=== PATIENT | female | born 1940 | race Caucasian/White ===

== ENCOUNTER 2016-08-23 20:36 | Emergency (ER) | payer MEDICARE ==
[2016-08-23 21:48] LABS: BASOPHILS 0.7 % (0.0-2.0); EOSINOPHILS 4.1 % (0-7); HEMATOCRIT 34.4 % (36.0-48.0); HEMOGLOBIN 10.6 g/dL (12-16); IMMATURE GRANULOCYTES 0.2 % (0-5); LYMPHOCYTES 24.7 % (15-50); MCH 25.5 pg (26.0-34.0); MCHC 30.8 g/dL (31.0-37.0); MCV 82.9 fL (80.0-100.0); MEAN PLATELET VOLUME 9.4 fL (7.4-10.4); MONOCYTES 11.1 % (2-11); NEUTROPHILS 59.2 % (40-80); PLATELET COUNT 197 10x3/uL (130-400); RBC 4.15 10x6/uL (4.00-5.40); RDW 15.4 % (11.5-14.5); WBC 5.8 10x3/uL (4.8-10.8)
[2016-08-23 22:04] LABS: ALBUMIN 3.3 g/dL (3.4-5.0); ANION GAP 9.8 mmol/L (8-16); CALCIUM 8.4 mg/dL (8.5-10.1); CARBON DIOXIDE 31.6 mmol/L (21.0-32.0); CREATININE - SERUM 0.9 mg/dL (0.6-1.3); POTASSIUM - SERUM 3.4 mmol/L (3.5-5.1); PROTEIN - SERUM 7.6 g/dL (6.4-8.2)
[2016-08-23 22:05] LABS: BILIRUBIN - TOTAL 0.08 mg/dL (0.2-1.3)
[2016-08-23 22:20] LABS: APPEARANCE CLEAR (CLEAR); BILIRUBIN NEGATIVE (NEGATIVE); COLOR YELLOW (YELLOW); GLUCOSE NEGATIVE (NEGATIVE); KETONE NEGATIVE (NEGATIVE); LEUKOCYTE ESTERASE 1+ (NEGATIVE); NITRITE NEGATIVE (NEGATIVE); PROTEIN NEGATIVE (NEGATIVE); UROBILINOGEN NORMAL (NORMAL)
[2016-08-23 22:24] LABS: BACTERIA FEW /hpf (NONE SEEN); RED CELLS - URINE OCC /hpf (0-5); WHITE CELLS - URINE 0-5 /hpf (0-5)
== END 2016-08-24 00:21 | disposition home or self-care (01) ==
LOC: D.ER 20:36
PROVIDERS: Emergency Medicine
DX: N28.1 Cyst of kidney, acquired (principal); I10 Essential (primary) hypertension; K58.9 Irritable bowel syndrome, unspecified

== ENCOUNTER 2016-09-08 11:49 | Emergency (ER) | payer MEDICARE | END 2016-09-08 16:22 | disposition home or self-care (01) | LOC: D.ER 11:49 | DX: S00.83XA Contusion of other part of head, initial encounter (principal); W01.0XXA Fall on same level from slipping, tripping and stumbling without subsequent striking against object, initial encounter; Y93.89 Activity, other specified; Y92.410 Unspecified street and highway as the place of occurrence of the external cause; S16.1XXA Strain of muscle, fascia and tendon at neck level, initial encounter; S39.012A Strain of muscle, fascia and tendon of lower back, initial encounter; S29.012A Strain of muscle and tendon of back wall of thorax, initial encounter; I10 Essential (primary) hypertension; K58.9 Irritable bowel syndrome, unspecified ==

== ENCOUNTER → 2017-10-25 08:37 | Outpatient (CLI) | payer MEDICARE ==
[~2017-10-25] VITALS: Ht 165.1 cm; Wt 94.5 kg
--- NOTE | ~2017-10-25 | HEMODYNAMI ---
PATIENT:BERKLEY BARAJAS MEDICAL RECORD: [id number] : 44 [place] 2[place]T# [id number] ADMISSION DATE: 10/25/17 Generatedon:10/25/201712:21 Patient name: BERKLEY BARAJAS Patient #: [id number] SSN: : 1940 Date of study: 10/25/2017 Page: Of Hemodynamic Procedure Report Patient Data Patient Demographics Procedure consent was obtained First Name: BERKLEY Gender: Female Last Name: KARL : 1940 Patient #: [id number] Age: 77 year(s) Race: Unknown Additional ID: [id number] Contact details [address]: [address] [place] [address] State: [place] City: [place] Zip code: [address] Admission Admission Data Admission Date: 10/25/2017 Admission Time: 8:37 Procedure Procedure Types Cath Procedure Peripheral Cath Diagnostic Procedure Miscellaneous Procedure Description Procedure Date Procedure Date: 10/25/2017 Procedure Start Time: 11:30 Procedure Staff Name Function Mandeep Medina RT Scrub Mandeep Medina RT Monitor Hitesh Mckeon MD Performing Physician Dilma Damon RN Nurse Jaja River RN Nurse Procedure Data Cath Procedure Fluoroscopy Diagnostic fluoroscopy Total fluoroscopy Time: 4.3 time: 4.3 min min Diagnostic fluoroscopy Total fluoroscopy dose: 206 dose: 206 mGy mGy Contrast Material Contrast Material Type Amount (ml) Isovue 300 10 Procedure Medications Medication Administration Route Dosage Fentanyl I.V. 50 mcg Versed I.V. 2 mg Ancef (1Gm/50ml NS) I.V.P.B 1 g Fentanyl I.V. 50 mcg Versed I.V. 2 mg Fentanyl I.V. 50 mcg Fentanyl I.V. 50 mcg Hemodynamics Rest Heart Rate: 64 (bpm) Snapshots Pre Cath Intra NCS Post Cath Vital Signs Time Heart Resp SPO2 etCO2 NIBP (mmHg) Rhythm Pain Status Sedation Rate (ipm) (%) (mmHg) Level (bpm) 11:15:29 99 39.5 Measuring NSR 0 (11) , No 10(A) pain 11:16:43 35.6 Time NSR 0 (11) , No 10(A) Exceeded pain 11:21:24 91 35.7 192/87(135) NSR 0 (11) , No 10(A) pain 11:26:04 63 18 100 37.2 197/92(123) NSR 0 (11) , No 10(A) pain 11:30:45 62 10 98 40.2 193/93(123) NSR 0 (11) , No 10(A) pain 11:35:17 62 17 98 42.5 180/85(132) NSR 0 (11) , No 8(A) pain 11:39:48 64 25 98 43.2 169/81(132) NSR 2 (11) , 8(A) Uncomfortable 11:44:18 64 22 97 42.5 172/83(142) NSR 0 (11) , No 8(A) pain 11:48:17 64 34 19.7 No Cuff NSR 0 (11) , No 8(A) pain 11:50:59 66 7 96 24.3 148/81(121) NSR 2 (11) , 8(A) Uncomfortable 11:55:23 68 12 96 0 162/84(139) NSR 0 (11) , No 8(A) pain 12:00:22 69 11 83 37.2 Measuring NSR 0 (11) , No 8(A) pain 12:00:43 68 12 96 32.6 171/84(124) NSR 0 (11) , No 8(A) pain Medications Time Medication Route Dose Verified Delivered Reason Notes Effectiven ess by by 11:31:23 Fentanyl I.V. 50 Hitesh Wilkinson for Dozing mcg Perico Mckeon RN sedation intermittently MD @ 11:43:09 11:31:34 Versed I.V. 2 mg Hitesh Wilkinson for Dozing Perico Mckeon RN sedation intermittently MD @ 11:43:05 11:33:57 Ancef I.V.P.B 1 g Hitesh Wilkinson Per (1Gm/50ml Perico Mckeon RN protocol NS) 11:35:36 Fentanyl I.V. 50 Hitesh Wilkinson for Sedated @ Perico Love RN sedation 11:50:28 11:41:08 Versed I.V. 2 mg Hitesh Wilkinson for Sedated @ Perico Mckeon RN sedation 11:51:29 11:42:58 Fentanyl I.V. 50 Hitesh Wilkinson for Sedated @ Perico Love RN sedation 11:51:32 11:54:33 Fentanyl I.V. 50 Hitesh Wilkinson for Perico Love RN sedation Procedure Log Time Note 11:06:43 Mandeep Medina RT (R) (CV) sent for patient. Start room use. 11:06:51 Time tracking: Regular hours (M-F 7:00 - 5:00) 11:06:55 Plan of Care:Hemodynamics will remain stable., Cardiac rhythm will remain stable., Comfort level will be maintained., Respiratory function will remain adequate., Patient/ family verbilizes understanding of procedure., Procedure tolerated without complication., Recovers from procedure without complications.. 11:07:01 Patient received from Outpatients to IR Alert and oriented. Tansferred to table in Supine position. 11:07:02 Correct patient and procedure confirmed by team. 11:07:04 ECG and BP/O2 sat monitors applied to patient. 11:07:04 Signed procedure consent form obtained from patient. 11:07:09 - 11:07:09 Full Disclosure recording started 11:07:12 H&P Date Dictated: 10/25/2017 H&P Addendum completed by physician on day of procedure. (MUST COMPLETE FOR ALL OUTPATIENTS). 11:07:13 Pre-op teaching completed and patient verbalized understanding. 11:07:13 Pre-procedure instructions explained to patient. 11:07:16 Family in waiting room. 11:07:18 Patient NPO since Midnight. 11:07:22 Use device set IR Diagnostic 11:07:23 Sterile Angiographic Pack opened to sterile field. 11:07:24 Bag Decanter (2002S) opened to sterile field. 11:11:40 Is the patient allergic to Iodine/contrast media? No. 11:11:42 Is patient on blood thinner?No 11:11:43 Patient diabetic? No. 11:11:45 ----Pre-sedation anethsthesia assessment.---- 11:11:45 - 11:11:49 Previous problem with sedation/anesthesia? No ? 11:11:50 Snore? Yes 11:11:51 Sleep apnea? Yes 11:11:52 Deviated septum? No 11:11:53 Opens mouth fully? Yes 11:11:54 Sticks out tongue? Yes 11:11:57 Airway obstruction? No ? 11:12:03 Dentures? Yes in tight 11:12:12 Patient pain scale 0/10 no pain. 11:12:18 IV patent on arrival in right hand with 0.9% NaCl at [facility]. 11:12:19 Sharps counted by scrub and verified by R.N. 11:12:20 Alarms reviewed by R. N. 11:12:25 Left abdomen area was prepped with chlora-prep and draped in sterile fashion 11:13:40 Vital chart was started 11:28:35 Physician arrived 11:28:36 Final Timeout: patient, procedure, and site verified with staff and physician. All members of the team are in agreement. :28:36 --------ALL STOP TIME OUT------ 11::44 Left abdomen site verified by team. 11:28:50 Sedation plan: IV Moderate Sedation Medication:Versed, Fentanyl 11:29:09 Baseline sample Acquired. 11:30:36 Procedure started. 11:30:41 Local anesthetic to Abdominal area with Lidocaine 1% by Hitesh Mckeon MD.INITIAL ACCESS ONLY 11:30:49 BAG, DRAINAGE EMPTY 600ML W/ADILIA (VFZ646) opened to sterile field. 11:30:[address] ST[address] 3-Way Large Bore ([id number]) opened to sterile field. 11:30:50 Micropuncture VSI 4FR kit opened to sterile field. 11:31:23 Fentanyl 50 mcg I.V. was administered by Jaja River RN; for sedation; 11:31:34 Versed 2 mg I.V. was administered by Jaja River RN; for sedation; 11:33:57 Ancef (1Gm/50ml NS) 1 g I.V.P.B was administered by Jaja River RN ; Per protocol; 11:35:36 Fentanyl 50 mcg I.V. was administered by Jaja River RN; for sedation; 11:37:28 Abscession 10 FR drainage catheter ([id number]) opened to sterile field. 11:37:37 SUTURE ETHILON 2-0 BLK MONO FS opened to sterile field. 11:41:08 Versed 2 mg I.V. was administered by Jaja River RN; for sedation; 11:41:50 BRYAN 80cm wire ([id number]) opened to sterile field. 11:42:58 DILATOR, VESSEL 10/20 opened to sterile field. 11:42:58 Fentanyl 50 mcg I.V. was administered by Jaja River RN; for sedation; 11:42:59 DILATOR, VESSEL 8/20 opened to sterile field. 11:43:05 Effectiveness of Versed delivered @ 11:31:34 is: Dozing intermittently 11:43:09 Effectiveness of Fentanyl delivered @ 11:31:23 is: Dozing intermittentl y 11:44:29 Tegaderm 6 x 8 (1628) opened to sterile field. 11:50:28 Effectiveness of Fentanyl delivered @ 11:35:36 is: Sedated 11:51:29 Effectiveness of Versed delivered @ 11:41:08 is: Sedated 11:51:32 Effectiveness of Fentanyl delivered @ 11:42:58 is: Sedated 11:51:[address] Rakan (003047) opened to sterile field. 11:52:27 BENTSON 145cm wire (D63336) opened to sterile field. 11:54:33 Fentanyl 50 mcg I.V. was administered by Jaja River RN; for sedation; 11:55:39 Abscession 10 FR drainage catheter ([id number]) opened to sterile field. 11:55:41 GLIDE CATHETER 5FR ANGLED 65cm (CG507) opened to sterile field. 11:57:46 procedure aborted by pt moved to CT to proceed with drain. 11:58:28 drainage cath cannot be placed under flouro 11:58:42 Procedure ended.(Physican Out) 11:58:44 had to move patient to ct for drain repositoning 11:59:16 Fluoroscopy time 04.30 minutes. 11:59:20 Fluoroscopy dose: 206 mGy 11:59:20 Flurop Dose total: 206 11:59:23 Sharps counted by scrub and verified by R.N. 12:02:46 Post-op/insertion site Left Abdominal area dressed using a 4 x 4 and Tegaderm. 12:03:04 Post Abdominal area:stable 12:03:08 Post procedure instruction explained to patient.Patient verbalizes understanding. 12:03:09 Procedure and supply charges have been captured, reviewed, submitted an d are correct. 12:03:13 Report given to Other. 12:03:16 Patient transfered to Other with Stretcher. 12:03:36 Vital chart was stopped 12:03:40 Full Disclosure recording stopped 12:20:51 Contrast amount:Isovue 300 10ml. Device Usage Item Name Manufacture Quantity Catalog Hospital Part Current Minim al Lot# / Number Charge Number Stock Stock Serial# Code Sterile Cardinal 1 [id number] [id number] 5 Angiographic Health Pack Bag Decanter Microtek 1 2001S 649999 92066 142790 5 () [employer] [facility] [id number] 777290 6985 505155 5 [id number] 3-Way Large Bore (K38464) BAG, DRAINAGE [facility] Medical 1 [id number] 738610 425725 308640 5 [id number] EMPTY 600ML W/ADILIA (RXS166) Micropuncture VSI VASCULAR 1 7266V 734562 855767 5 VSI 4FR kit SOLUTIONS Abscession 10 Angiodynamics 2 [id number] 126820 488632 428234 5 FR drainage catheter ([id number]) SUTURE Ethicon 1 664H 919780 826440 5 ETHILON 2-0 BLK MONO FS BRYAN 80cm [facility] 1 [id number] 013167 762813 5 [id number] wire ([id number]) DILATOR, [employer] 1 Q87761 320896 81473 946223 5 VESSEL 10/20 DILATOR, [facility] 1 [id number] 414522 16661 163022 5 VESSEL 8/20 Tegaderm 6 x 3M 1 1628 023843 239410 5 8 (1628) SHEATH [address]FR [facility] Rakan 1 981499 463016 056535 319755 5 Rakan (821201) BENTSON 145cm [facility] 1 I83864 238780 744733 5 [id number] wire ([id number]) GLIDE Terumo 1 CG507 263212 058687 5 CATHETER 5FR ANGLED 65cm (CG507) Signature Audit Sledge Stage Time Signature Unsigned Intra-Procedure 10/25/2017 Mandeep Catherineield RT 12:03:34 PM Shuffield RT (R) (CV) 10/25/2017 (R) (CV) 12:20:43 PM Intra-Procedure 10/25/2017 Mandeep 12:21:16 PM Shuffield RT (R) (CV) Signatures Monitor : Mandeep Signature : Florinield RT Date : Time : [place] [id number] [place] [address]
[~2017-10-25 08:37] MED LIST: ARICEPT10 MG PO; BUPROPION XL300 MG PO; HCTZ25 MG PO; LUNESTA3 MG PO; PROTONIX40 MG PO; TRAZODONE HCL50 MG PO; VALTREX1000 MG PO; VIIBRYD40 MG PO
[2017-10-25 09:37] LABS: BASOPHILS 1.1 % (0-2); EOSINOPHILS 4.3 % (0-7); HEMATOCRIT 38.7 % (36.0-48.0); HEMOGLOBIN 12.6 g/dL (12-16); LYMPHOCYTES 27.8 % (15-50); MCHC 32.6 g/dL (31.0-37.0); MCV 89.2 fL (80.0-100.0); MEAN PLATELET VOLUME 9.2 fL (7.4-10.4); MONOCYTES 7.2 % (2-11); NEUTROPHILS 59.6 % (40-80); PLATELET COUNT 172 10x3/uL (130-400); RBC 4.34 10x6/uL (4.00-5.40); RDW 13.3 % (11.5-14.5); WBC 4.4 10x3/uL (4.8-10.8)
[2017-10-25 09:43] VITALS: Ht 165.1 cm; Wt 94.5 kg
[2017-10-25 09:46] LABS: PROTIME 12.8 SECONDS (11.6-15.0)
[2017-10-25 09:47] LABS: APTT 27.6 SECONDS (22.8-39.4)
[2017-10-25 09:56] LABS: ANION GAP 11.3 mmol/L (8-16); CALCIUM 8.5 mg/dL (8.5-10.1); CARBON DIOXIDE 29.2 mmol/L (21.0-32.0); CREATININE - SERUM 0.8 mg/dL (0.6-1.3); POTASSIUM - SERUM 3.5 mmol/L (3.5-5.1)
[2017-10-25 17:33] LABS: PROTEIN - BODY FLUID 4.5 G/DL
[2017-10-25 20:09] LABS: MACROPHAGES BF 43 %; NEUT - BF 13 %
== END | disposition home or self-care (01) ==
LOC: D.CT 10-22 08:00 → D.SP 08:37 → D.CT 11:00
PROVIDERS: General Practice
DX: N28.1 Cyst of kidney, acquired (principal); I10 Essential (primary) hypertension; Z01.812 Encounter for preprocedural laboratory examination

== ENCOUNTER → 2018-11-25 10:05 | Outpatient (CLI) | payer MEDICARE ==
[2018-02-14 08:42] VITALS: BMI 29.1
--- NOTE | ~2018-11-25 | ST ---
PATIENT:BERKLEY BARAJAS MEDICAL RECORD: [id number] SEX: F LOCATION:[facility] ORDER #: ADMISSION DATE: 11/25/18 AGE OF PATIENT: 78 REFERRING PHYSICIAN: INTERPRETING PHYSICIAN: BEAU SALVADOR MD DATE OF SERVICE: 11/25/2018 PROCEDURE: Nuclear stress test. INDICATIONS: Angina, coronary artery disease, shortness of breath, hypertension, hyperlipidemia. She was exercised on standard Lexiscan protocol with 31 mCi of sestamibi injected at peak stress, 10 mCi used previously for rest images. FINDINGS: Gated SPECT reveals preserved ejection fraction at 74% with good wall motion and thickening and brightening throughout all segments. SPECT imaging Cardiolite was used as myocardial fusion agent. There is homogeneous uptake throughout all segments at rest and stress with no evidence of inducible ischemia or previous infarction. OVERALL IMPRESSION: 1. This is a normal nuclear stress test with no evidence of inducible ischemia or previous infarction. 2. Gated SPECT reveals a preserved ejection fraction at 74%. In this patient with ongoing symptomatology, the current scan does not suggest the presence of hemodynamically significant coronary artery disease. Evaluate noncardiac etiology of chest pain. TRANSINT:[id number] Voice Confirmation ID: [id number] DOCUMENT ID: [id number] BEAU SALVADOR MD CC: [id number] DICTATION DATE: 11/26/18 1550 AIR CONDITIONING UNIT TESTER: 11/27/18 0941 [facility] CLI 11/25/18 [facility] [address] [place] [address]
[~2018-11-25 10:05] MED LIST changes: +ACETAMINOPHEN500 M1 PO; +MULTI-DAY VITAM1 TAB PO; +PLAVIX75 MG PO
== END | disposition home or self-care (01) ==
LOC: D.HCCARDIO 10:05
PROVIDERS: ATTEND Internal Medicine Interventional Cardiology
DX: I25.10 Atherosclerotic heart disease of native coronary artery without angina pectoris (principal)

== ENCOUNTER → 2018-12-04 13:39 | Outpatient (CLI) | payer MEDICARE | END | disposition home or self-care (01) | LOC: D.CT 13:39 | DX: N28.1 Cyst of kidney, acquired (principal) ==

== ENCOUNTER → 2018-12-17 13:00 | Outpatient (CLI) | payer MEDICARE ==
[2018-02-14 08:42] VITALS: BMI 29.1
== END | disposition home or self-care (01) ==
LOC: D.US 13:00
PROVIDERS: ATTEND Urology
DX: N83.292 Other ovarian cyst, left side (principal)

== ENCOUNTER 2019-07-28 10:17 | Day surgery (SDC) | payer OTHER ==
[~2019-07-28] VITALS: Ht 165.1 cm; Wt 99.5 kg
[2019-07-28 10:48] LABS: BASOPHILS 0.5 % (0-2); EOSINOPHILS 3.3 % (0-7); HEMATOCRIT 37.6 % (36.0-48.0); HEMOGLOBIN 11.6 g/dL (12-16); IMMATURE GRANULOCYTES 0.2 % (0-5); LYMPHOCYTES 20.7 % (15-50); MCH 25.9 pg (26.0-34.0); MCHC 30.9 g/dL (31.0-37.0); MCV 83.9 fL (80.0-100.0); MEAN PLATELET VOLUME 8.4 fL (7.4-10.4); MONOCYTES 7.6 % (2-11); NEUTROPHILS 67.7 % (40-80); RBC 4.48 10x6/uL (4.00-5.40); RDW 16.5 % (11.5-14.5); WBC 5.8 10x3/uL (4.8-10.8)
[2019-07-28 10:49] LABS: PLATELET COUNT 254 10x3/uL (130-400)
[2019-07-28 10:54] LABS: ANION GAP 10.3 mmol/L (8-16); CALCIUM 8.6 mg/dL (8.5-10.1); CARBON DIOXIDE 31.4 mmol/L (21.0-32.0); CREATININE - SERUM 0.8 mg/dL (0.6-1.3); POTASSIUM - SERUM 3.7 mmol/L (3.5-5.1)
[2019-07-28 10:59] LABS: APTT 28.3 SECONDS (22.8-39.4); INR 1.02 (0.85-1.17); PROTIME 13.3 SECONDS (11.6-15.0)
[2019-07-28] MEDS ORDERED: HALCION0.25 MG PO (11:02)
[2019-07-28] MEDS ORDERED: NORVASC5 MG PO (11:03)
[2019-07-28] MEDS ORDERED: PROZAC20 MG PO (11:03)
[2019-07-28 11:09] VITALS: Ht 165.1 cm; Wt 99.5 kg
--- NOTE | 2019-07-28 15:29 | NUR ---
DC INSTRUCTIONS GIVEN TO PT/FAMILY. STATE UNDERSTANDING. DC'D IV CATH FULLY INTACT.
--- NOTE | 2019-07-28 15:43 | NUR ---
PT LEFT UNIT VIA WC AT 1540
--- NOTE | 2019-07-30 14:45 | OP ---
PATIENT NAME: BERKLEY BARAJAS I MEDICAL RECORD: [id number] :44 LOCATION:D.OPS ADMISSION DATE: SURGEON: CHRISTIANO GARZA MD DATE OF OPERATION: 07/28/2019 PREOPERATIVE DIAGNOSES: 1. Intractable nausea. 2. Epigastric abdominal pain. 3. Gastroesophageal reflux. 4. History of Hirschsprung disease. 5. History of colon polyps. 6. Family history of colon cancer. POSTOPERATIVE DIAGNOSES: 1. Large hiatal hernia. 2. Moderate gastritis with linear ulcers, multiple. 3. Diminutive gastric polyps. 4. Cecal polyp. 5. Pancolonic diverticulosis. PROCEDURES: 1. Esophagogastroduodenoscopy with biopsies. 2. Total colonoscopy to cecum. 3. Hot biopsy forceps polypectomy times 1. SURGEON: Christiano Garza MD LABORER PLUMBING: None. BLOOD LOSS: Minimal. ANESTHESIA: IV sedation. COMPLICATIONS: None. The risks, possible complications and alternatives to the procedure were explained to the patient. She elects to proceed. ENDOSCOPIC COURSE: The patient was conveyed to endoscopy suite electively on 07/28/2019. IV sedation was induced by the anesthesia staff. A bite block was inserted. A gastroscope was inserted into the mouth. It was advanced easily into the hypopharynx. The esophagus was easily intubated as were the stomach and duodenum. On withdrawal, retroflexed and angulus views were obtained. Antral biopsies were obtained. I then unretroflexed the scope and removed under direct vision. I then turned the patient 180 degrees and placed her in the Reeves position. A digital rectal examination was performed. A colonoscope was inserted through the anus. It was easily advanced to the cecum. The prep was adequate. A cecal polyp was noted. It was removed in its entirety utilizing the hot biopsy forceps polypectomy technique. I withdrew the colonoscope slowly. The pullback was greater than 18-minute pullback. I dragged the folds. I utilized not only direct imaging, but also narrow band imaging. I irrigated and aspirated extensively. I noted no other OPERATIVE REPORT [id number] BERKLEY BARAJAS I polypoid lesions. No masses. A retroflexed view was obtained in the rectum. I then unretroflexed the scope and removed it under direct vision. I will see the patient in my office in 2-3 weeks. My plan is to start her on Carafate and have her next surveillance colonoscopy in 3 years. TRANSINT:[id number] Voice Confirmation ID: [id number] DOCUMENT ID: [id number] CHRISTIANO GARZA MD at 1445 CC: DAXA ASCENCIO and BAEU SALVADOR [id number] DICTATION DATE: 07/28/19 1450 CONTROLS DESIGNER: 07/28/19 1515 [facility] [place] 07/28/19 [place] [id number] [place] [id number]
--- NOTE | 2019-07-30 14:45 | HP ---
PATIENT: BERKLEY BARAJAS I MEDICAL RECORD: [id number] ACCOUNT: [id number] LOCATION:[facility] : 42 ADMISSION DATE: 07/28/19 PCP: DAXA ASCENCIO MD HISTORY AND PHYSICAL EXAMINATION CHIEF COMPLAINT: Gastroesophageal reflux. HISTORY OF PRESENT ILLNESS: The patient has been having gastroesophageal reflux, also epigastric abdominal pain. There is a family history of colon cancer. Her mother had colon cancer. Also, she has a personal history of colon polyps. The patient has had no dysphagia. No odynophagia. She is here for EGD and colonoscopy. PAST MEDICAL AND SURGICAL HISTORY: Coronary artery disease; hypertension; history of coronary stents times 1; gastroesophageal reflux, which is controlled; a cyst on the kidney; and cholecystectomy. She has undergone a colon resection due to Hirschsprung's disease, also history of hysterectomy. She has sleep apnea, is on CPAP on a p.r.n. basis. SOCIAL HISTORY: Nonsmoker. HOME MEDICINES: Reviewed. ALLERGIES: REGLAN AND LEVAQUIN. PHYSICAL EXAMINATION: GENERAL: The patient does not appear acutely ill. She does not appear chronically ill. VITAL SIGNS: Reviewed. EARS: External ears appear normal. EYES: Extraocular movements are intact. NECK: Trachea is midline. CHEST: No intercostal retractions. PULMONARY: Nonlabored, no stridor. IMPRESSION: 1. Epigastric abdominal pain. 2. Gastroesophageal reflux. 3. Family history of colon cancer. 4. History of Hirschsprung's disease, status post colectomy. 5. History of colon polyps. PLAN: EGD and colonoscopy. TRANSINT:[id number] Voice Confirmation ID: [id number] DOCUMENT ID: [id number] HISTORY AND PHYSICAL [id number] BERKLEY BARAJAS I CHRISTIANO GARZA MD at 1445 CC: DAXA ASCENCIO and BEAU SALVADOR [id number] DICTATION DATE: 07/28/19 1351 LEAD NITRATE PROCESSOR: 07/28/19 1404 [facility] 07/28/19 [facility] [address] [place] [address]
== END 2019-07-28 15:40 | disposition home or self-care (01) ==
LOC: D.OPS 10:17
PROVIDERS: Anesthesiology; ATTEND Surgery
DX: R11.0 Nausea (principal); R10.13 Epigastric pain; K21.9 Gastro-esophageal reflux disease without esophagitis; Z86.010 Personal history of colon polyps; Z80.0 Family history of malignant neoplasm of digestive organs; D12.0 Benign neoplasm of cecum; K31.7 Polyp of stomach and duodenum; K57.90 Diverticulosis of intestine, part unspecified, without perforation or abscess without bleeding

== ENCOUNTER → 2019-12-04 12:32 | Outpatient (CLI) | payer OTHER ==
[2019-07-28 11:09] VITALS: BMI 36.5
[~2019-12-04 12:32] MED LIST changes: +HALCION0.25 MG PO; +NORVASC5 MG PO; +PROZAC20 MG PO
== END | disposition home or self-care (01) ==
LOC: D.US 12:32
PROVIDERS: ATTEND Family Medicine
DX: R19.09 Other intra-abdominal and pelvic swelling, mass and lump (principal); R79.89 Other specified abnormal findings of blood chemistry

== ENCOUNTER 2020-01-11 10:00 | Observation (INO) | payer OTHER ==
[~2020-01-11] VITALS: Ht 165.1 cm; Wt 94.7 kg
[2020-01-11 10:32] LABS: BASOPHILS 0.9 % (0-2); EOSINOPHILS 3.8 % (0-7); HEMOGLOBIN 7.8 g/dL (12-16); IMMATURE GRANULOCYTES 0.2 % (0-5); LYMPHOCYTES 22.1 % (15-50); MCH 21.8 pg (26.0-34.0); MCHC 28.9 g/dL (31.0-37.0); MCV 75.4 fL (80.0-100.0); MEAN PLATELET VOLUME 8.1 fL (7.4-10.4); MONOCYTES 9.1 % (2-11); NEUTROPHILS 63.9 % (40-80); PLATELET COUNT 302 10x3/uL (130-400); RBC 3.58 10x6/uL (4.00-5.40); RDW 17.6 % (11.5-14.5); WBC 5.3 10x3/uL (4.8-10.8)
[2020-01-11 10:45] LABS: CALC OSMOLALITY 278 mosm/kg (275-300); CALCIUM 8.4 mg/dL (8.5-10.1); CHLORIDE - SERUM 104 mmol/L (98-107); GLUCOSE 93 mg/dL (74-106); POTASSIUM - SERUM 3.5 mmol/L (3.5-5.1); SODIUM 140 mmol/L (136-145); UREA NITROGEN 13 mg/dL (7-18); eGFR NON AFRICAN AMERICAN 57 mL/min (90-120)
[2020-01-11 10:49] LABS: APTT 26.1 SECONDS (22.8-39.4); INR 0.97 (0.85-1.17); PROTIME 12.8 SECONDS (11.6-15.0)
[2020-01-11 11:02] LABS: ALBUMIN 3.1 g/dL (3.4-5.0); ALKALINE PHOSPHATASE 110 U/L (30-120); ALT (SGPT) 20 U/L (10-68); BILIRUBIN - TOTAL 0.25 mg/dL (0.2-1.3); CKMB 0.3 U/L (0.0-3.6); CREATINE KINASE 42 UL (21-215); MAGNESIUM - SERUM 2.1 mg/dL (1.8-2.4); PROTEIN - SERUM 7.3 g/dL (6.4-8.2); TROPONIN-I < 0.017 ng/mL (0.000-0.060)
[2020-01-11 13:00] VITALS: BP 135/72
[2020-01-11 13:33] LABS: CKMB 0.4 U/L (0.0-3.6); CREATINE KINASE 34 UL (21-215)
[2020-01-11 13:34] LABS: TROPONIN-I < 0.017 ng/mL (0.000-0.060)
--- NOTE | 2020-01-11 16:15 | NUR ---
RECEIVED REPORT FROM RUSLAN FROM THE ED.
--- NOTE | 2020-01-11 16:22 | NUR ---
RECEIVED VIA WHEELCHAIR TO ROOM. ON 2L PER NC. PIV 20 G TO LEFT AC. WILL ADMIT. PLACED ON HEART MONITOR SHOWING SR, HR 75. STATES TO NO BM X 1 WEEK. BRUISE SEEN TO RIGHT UPPER ARM. STATES TO FALLS. ALL FALL PRECAUTIONS IN PLACE.
[2020-01-11] MEDS ORDERED: PROZAC40 MG PO (16:45)
[2020-01-11] MEDS ORDERED: OXYBUTYNIN CHLOR5 MG PO (16:47)
[2020-01-11] MEDS ORDERED: ZOCOR40 MG PO (16:47)
[2020-01-11] MEDS ORDERED: VITAMIN D5000 UNI1 PO (16:48)
[2020-01-11] MEDS ORDERED: QUESTRAN LIG1 PACKET PO (16:48)
[2020-01-11] MEDS ORDERED: CARAFATE1 G PO (16:49)
[2020-01-11 16:54] VITALS: BP 118/71; BMI 33.3
--- NOTE | 2020-01-11 17:50 | NUR ---
ASSISTED TO BATHROOM, VOIDS EASILY. BACK TO BED AND BED ALARM SET. CALL LIGHT IN USE.
--- NOTE | 2020-01-11 18:29 | NUR ---
POTASSIUM IS 3.5, COVERED PER PROTOCOL AND LEVEL ORDERED THIS EVENING.
[2020-01-11 19:29] LABS: CKMB 0.5 U/L (0.0-3.6); CREATINE KINASE 34 UL (21-215)
[2020-01-11 19:32] LABS: TROPONIN-I < 0.017 ng/mL (0.000-0.060)
[2020-01-11 20:00] VITALS: BP 110/65
--- NOTE | 2020-01-11 20:04 | NUR ---
PT DEMANDING TO GET BLOOD TONIGHT OR GO HOME. DR SEVILLA ON UNIT. SPOKE WITH HIM TO PLEASE SEE PATIENT AND HER LIST OF REQUESTS/WHICH INCLUDE NEEDING HER HALCION TONIGHT AND THAT SHE WANTS A BLOOD TRANSFUSION.
--- NOTE | 2020-01-11 21:00 | NUR ---
DR SEVILLA NO LONGER ON UNIT AND PT STATES HE NEVER ENTERED HER ROOM TO SEE HER. PT VERY ANGRY. PAGED TO TALK WITH DR BECERRIL AND WAS TOLD HE IS NO LONGER HEALTH SAFETY SPECIALIST. ANSWERING SERVICE STATES ASHISH DIMAS NOW HEALTH SAFETY SPECIALIST. HAD TAZ PAGED. NOT RETURN CALL. CALL PAGER DIRECTLY FOR ASHISH HEALTH SAFETY SPECIALIST NO RETURN CALL. PT STILL UPSET THAT SHE SAW DR BECERRIL GO PAST HER ROOM SEVERAL TIMES AND YET NEVER ENTERED HER ROOM. PT EVEN CONTEMPLATED LEAVING AMA SINCE NOTHING WAS BEING DONE FOR HER. SPOKE WITH PATIENT ABOUT HER BEING ADMITTED FOR CHEST PAIN AND THAT GETTING HER CARDIAC ENZYMES WAS IMPORTANT. PT NO LONGER INDICATING CHEST PAIN, NOW SAYING SHE NEEDS BLOOD AND SHE IS WASTING TIME BY DR BECERRIL NOT ORDERING IT FOR HER. THIS NURSE DOES NOT KNOW IF DR BECERRIL SPOKE WITH PATIENT OR NOT, BUT HE WAS IN AND AROUND HER ROOM OFF AND ON FOR 1/2 HOUR. PT FINALLY CALMED DOWN AND SAID SHE WILL JUST SPEAK WITH MD IN AM, BUT SHE IS STILL NOT HAPPY.
[2020-01-12] VITALS: BP 122/57
[2020-01-12 01:29] LABS: BASOPHILS 0.3 % (0-2); EOSINOPHILS 3.1 % (0-7); HEMATOCRIT 24.7 % (36.0-48.0); IMMATURE GRANULOCYTES 0.2 % (0-5); LYMPHOCYTES 24.3 % (15-50); MCH 21.6 pg (26.0-34.0); MCHC 28.7 g/dL (31.0-37.0); MCV 75.1 fL (80.0-100.0); MEAN PLATELET VOLUME 7.8 fL (7.4-10.4); MONOCYTES 10.5 % (2-11); NEUTROPHILS 61.6 % (40-80); PLATELET COUNT 244 10x3/uL (130-400); RBC 3.29 10x6/uL (4.00-5.40); RDW 17.5 % (11.5-14.5); WBC 5.8 10x3/uL (4.8-10.8)
[2020-01-12 01:33] LABS: HEMOGLOBIN 7.1 g/dL (12-16)
[2020-01-12 01:46] LABS: ALBUMIN 2.8 g/dL (3.4-5.0); ALKALINE PHOSPHATASE 103 U/L (30-120); ALT (SGPT) 18 U/L (10-68); BILIRUBIN - TOTAL 0.23 mg/dL (0.2-1.3); CALC OSMOLALITY 278 mosm/kg (275-300); CARBON DIOXIDE 28.9 mmol/L (21.0-32.0); CHLORIDE - SERUM 106 mmol/L (98-107); GLUCOSE 98 mg/dL (74-106); POTASSIUM - SERUM 3.3 mmol/L (3.5-5.1); PROTEIN - SERUM 6.6 g/dL (6.4-8.2); SODIUM 140 mmol/L (136-145); UREA NITROGEN 13 mg/dL (7-18); eGFR NON AFRICAN AMERICAN 86 mL/min (90-120)
[2020-01-12 01:47] LABS: CREATININE - SERUM 0.7 mg/dL (0.6-1.3)
[2020-01-12 02:12] LABS: CKMB 0.6 U/L (0.0-3.6); CREATINE KINASE 37 UL (21-215)
[2020-01-12 02:14] LABS: TROPONIN-I < 0.017 ng/mL (0.000-0.060)
[2020-01-12 04:00] VITALS: BP 114/70
--- NOTE | 2020-01-12 06:15 | NUR ---
AM LABS DRAWN. PT RESTING. NO DISTRESS. O2 @ 2L/NC. IVF INFUSING AT KVO. CPOC.
--- NOTE | 2020-01-12 07:20 | NUR ---
RECIEVE REPORT. RESTING IN BED WITH EYES CLOSED. NO SIGNS OF DISTRESS. CONTINUE PLAN OF CARE AND SAFETY PRECAUTIONS. REPLACE POTASSIUM PER ELECTROLYTE PROTOCOL.
[2020-01-12 09:42] VITALS: BP 107/44
[2020-01-12 09:46] LABS: % SATURATION 5 % (15-55); IRON 18 ug/dl (35-150); TOTAL IRON BIND CAPACITY 315 ug/dl (260-445); UNSAT IRON BIND CAPACITY 297 ug/dl (150-375)
[2020-01-12 12:48] VITALS: Ht 165.1 cm; Wt 94.7 kg
--- NOTE | 2020-01-12 13:00 | NUR ---
ALERT AND ORIENTED X4. RESTING IN BED. BLOOD CONSENT SIGNED CHART. INITIATE PRBC UNIT 1 TRANSFUSION. START RATE OUT AT 100ml/HR. T-98.2, R-16, O2-96% RA, HR-72, BP-89/57. REMAIN IN ROOM FOR NEXT 15 MINUTES TO MONITOR FOR REACTION. CONTINUE PLAN OF CARE AND SAFETY PRECAUTIONS.
--- NOTE | 2020-01-12 13:15 | NUR ---
ALERT AND ORIENTED X4. BP-104/47, HR-74, T-98.2. NO SIGNS OF REACTION. DENIES ANY NEEDS AT THIS TIME. INCREASE RATE TO 125mL/HR TRANSFUSING THROUGH LT FA 20G. CONTINUE PLAN OF CARE AND SAFETY PRECAUTIONS.
[2020-01-12 14:51] VITALS: BP 104/47
--- NOTE | 2020-01-12 15:40 | NUR ---
FIRST UNIT PRBC COMPLETE. INITIATE UNIT 2 PRBC TRANSFUSION. BP-124/62, HR-72, T-98.5, R-16. REMAIN IN ROOM FOR NEXT 15 MINUTES TO MONITOR FOR REACTION.
--- NOTE | 2020-01-12 15:51 | NUR ---
ALERT AND ORIENTED X4. SITTING UP IN BED TALKING ON PHONE. BP-116/56, HR-70, T-98.4. NO SIGNS OF REACTION. DENIES ANY NEEDS AT THIS TIME. CONTINUE PLAN OF CARE AND SAFETY PRECAUTIONS.
[2020-01-12 16:30] VITALS: BP 123/52
--- NOTE | 2020-01-12 19:00 | NUR ---
RECEIVED BEDSIDE REPORT. PATIENT IS ALERT AND ORIENTED, RESTING COMFORTABLY IN BED. RESPIRATIONS ARE EVEN AND UNLABORED. NO S/S OF DISTRESS. NO C/O PAIN. CALL LIGHT WITHIN REACH. WILL CPOC.
[2020-01-12 20:00] VITALS: BP 115/50
[2020-01-13 04:00] VITALS: BP 114/50
[2020-01-13 06:55] LABS: ALBUMIN 2.8 g/dL (3.4-5.0); ALKALINE PHOSPHATASE 105 U/L (30-120); ALT (SGPT) 13 U/L (10-68); BILIRUBIN - TOTAL 0.28 mg/dL (0.2-1.3); CALC OSMOLALITY 279 mosm/kg (275-300); CALCIUM 8.3 mg/dL (8.5-10.1); CHLORIDE - SERUM 107 mmol/L (98-107); CREATININE - SERUM 0.7 mg/dL (0.6-1.3); GLUCOSE 90 mg/dL (74-106); POTASSIUM - SERUM 3.3 mmol/L (3.5-5.1); PROTEIN - SERUM 6.7 g/dL (6.4-8.2); SODIUM 141 mmol/L (136-145); UREA NITROGEN 11 mg/dL (7-18); eGFR NON AFRICAN AMERICAN 86 mL/min (90-120)
[2020-01-13 07:14] LABS: BASOPHILS 0.6 % (0-2); EOSINOPHILS 5.2 % (0-7); IMMATURE GRANULOCYTES 0.2 % (0-5); LYMPHOCYTES 24.8 % (15-50); MCH 23.4 pg (26.0-34.0); MCHC 30.2 g/dL (31.0-37.0); MEAN PLATELET VOLUME 8.6 fL (7.4-10.4); MONOCYTES 8.9 % (2-11); NEUTROPHILS 60.3 % (40-80); PLATELET COUNT 271 10x3/uL (130-400); RBC 3.85 10x6/uL (4.00-5.40); RDW 17.7 % (11.5-14.5); WBC 6.2 10x3/uL (4.8-10.8)
[2020-01-13 07:18] LABS: HEMATOCRIT 29.8 % (36.0-48.0); MCV 77.4 fL (80.0-100.0)
--- NOTE | 2020-01-13 07:20 | NUR ---
RECIEVE REPORT. RESTING IN BED WITH EYES CLOSED. NO SIGNS OF DISTRESS. RESPIRATIONS NONLABORED. CONTINUE PLAN OF CARE AND SAFETY PRECAUTIONS.
[2020-01-13 09:41] VITALS: BP 120/70
[2020-01-13 13:43] VITALS: BP 128/73
[2020-01-13] MEDS ORDERED: FERROUS SULFAT325 MG PO (16:11)
--- NOTE | 2020-01-13 17:50 | NUR ---
ALERT AND ORIENTED X4. SITTING UP IN BED. IRON INFUSION COMPLETE. DC LT WRIST IV TIP INTACT. DISCHARGE INSTRUCIONS GIVEN VERBALLY AND WRITTEN. DISCHARGE PAPERS SIGNED ON CHART. ESCORT TO RIDE VIA WHEELCHAIR. REMAINS FREE FROM INJURY.
== END 2020-01-13 18:09 | disposition home or self-care (01) ==
LOC: D.ER 10:00 → OBSVTIME 11:47 → D.M2 11:47
PROVIDERS: Family Medicine; ADMIT Family Medicine Adult Medicine; ATTEND Family Medicine Adult Medicine
DX: I25.119 Atherosclerotic heart disease of native coronary artery with unspecified angina pectoris (principal); I11.0 Hypertensive heart disease with heart failure; I50.32 Chronic diastolic (congestive) heart failure; D50.9 Iron deficiency anemia, unspecified; M19.90 Unspecified osteoarthritis, unspecified site; E87.6 Hypokalemia

== ENCOUNTER 2020-10-01 17:34 | Emergency (ER) | payer OTHER ==
[~2020-10-01] VITALS: Ht 165.1 cm; Wt 90.9 kg
[~2020-10-01 17:34] MED LIST changes: +CARAFATE1 G PO; +FERROUS SULFAT325 MG PO; +OXYBUTYNIN CHLOR5 MG PO; +PROZAC40 MG PO; +QUESTRAN LIG1 PACKET PO; +VITAMIN D5000 UNI1 PO; +ZOCOR40 MG PO
[2020-10-01 17:38] VITALS: BP 150/97; Ht 165.1 cm; Wt 90.9 kg
[2020-10-01] MEDS ORDERED: NAPROXEN250 MG PO (17:58)
== END 2020-10-01 18:33 | disposition home or self-care (01) ==
LOC: D.ER 17:34
DX: S40.011A Contusion of right shoulder, initial encounter (principal); I11.0 Hypertensive heart disease with heart failure; I50.9 Heart failure, unspecified; W19.XXXA Unspecified fall, initial encounter; Y93.9 Activity, unspecified; Y92.9 Unspecified place or not applicable

== ENCOUNTER → 2020-11-15 18:06 | Outpatient (CLI) | payer OTHER ==
[2020-10-01 17:38] VITALS: BMI 33.3
[~2020-11-15 18:06] MED LIST changes: +NAPROXEN250 MG PO
== END | disposition home or self-care (01) ==
LOC: D.LABREF 18:06
PROVIDERS: ATTEND Orthopaedic Surgery
DX: M19.011 Primary osteoarthritis, right shoulder (principal)